=== PATIENT | male | born 1950 | race Caucasian/White ===

== ENCOUNTER 2017-08-05 07:16 | Day surgery (SDC) | payer OTHER ==
[2017-08-03 09:14] VITALS: BMI 21.2
[2017-08-05] MEDS ORDERED: PROPOFOL 20 ML ONE ×2 (07:22)
[2017-08-05 09:25] VITALS: BP 134/74; PULSE 65; TEMP 97.6
== END 2017-08-05 09:25 | disposition home or self-care (01) ==
LOC: FASU-ENDO 07:16
PROVIDERS: ATTEND Internal Medicine Gastroenterology
PROC: 0DJD8ZZ Inspection of Lower Intestinal Tract, Via Natural or Artificial Opening Endoscopic (ICD-10-PCS; principal; 2017-08-05 08:17)
DX: Z86.010 Personal history of colon polyps (principal); Z80.0 Family history of malignant neoplasm of digestive organs; K57.30 Diverticulosis of large intestine without perforation or abscess without bleeding

== ENCOUNTER 2022-09-07 09:02 | Day surgery (SDC) | payer OTHER ==
[2022-09-02 15:45] VITALS: BMI 20.9
[2022-09-07 10:31] VITALS: TEMP 98.2
[2022-09-07 10:42] VITALS: RESP 17
[2022-09-07 10:44] VITALS: BP 121/58; PULSE 62
== END 2022-09-07 10:35 | disposition home or self-care (01) ==
LOC: FASU-ENDO 09:02
PROVIDERS: ATTEND Internal Medicine Gastroenterology
PROC: 0DJD8ZZ Inspection of Lower Intestinal Tract, Via Natural or Artificial Opening Endoscopic (ICD-10-PCS; principal; 2022-09-07 09:32)
DX: Z12.11 Encounter for screening for malignant neoplasm of colon (principal); Z86.010 Personal history of colon polyps; Z80.0 Family history of malignant neoplasm of digestive organs; K57.30 Diverticulosis of large intestine without perforation or abscess without bleeding